=== PATIENT | female | born 1945 | race Caucasian/White ===

== ENCOUNTER 2022-05-11 15:57 | Outpatient (CLI) | payer MEDICARE, OTHER | END 2022-05-11 23:59 | disposition short-term general hospital (02) | LOC: EMS 15:57 | DX: S09.90XA Unspecified injury of head, initial encounter (principal); R11.2 Nausea with vomiting, unspecified; R42 Dizziness and giddiness; W10.9XXA Fall (on) (from) unspecified stairs and steps, initial encounter; Y92.009 Unspecified place in unspecified non-institutional (private) residence as the place of occurrence of the external cause; Z79.01 Long term (current) use of anticoagulants | CPT/HCPCS: A0425; A0427 ==